=== PATIENT | female | born 1970 | race Caucasian/White ===

== ENCOUNTER 2021-05-09 05:15 | Emergency (ER) | payer MEDICARE ==
[~2021-05-09] VITALS: Ht 170.2 cm; Wt 105.7 kg
--- NOTE | 2021-05-09 05:40 | NUR ---
PT IS DEAF AND HAVE TO COMMUNICATE WITH TYPEING ON HER PHONE. PT STATES SHE IS HAVE EPIGASTRIC PAIN THAT RADIATES TO HER BACK. PT STATES SHE HAS BEEN VOMITING FOR ONE DAY AND IS VERY UNCOMFORTABLE. DENIES ANY MEDICAL HISTORY. PT TO RESTROOM FOR URINE AT THIS TIME
[2021-05-09] MEDS ORDERED: HYDROmorphone 1 MG/ML, 1ML INJ IV ONE ×3 (06:00→09:00)
[2021-05-09] MEDS ORDERED: SODIUM CHLORIDE FLUSH 10ML SYR IVF ONE (06:00)
[2021-05-09] MEDS ORDERED: ONDANSETRON 2MG/ML, 2ML IVPush ONE (06:00)
[2021-05-09] MEDS ORDERED: HYDROmorphone 1 MG/ML, 1ML INJ ONE ×3 (06:13→09:49)
[2021-05-09] MEDS ORDERED: ONDANSETRON 2MG/ML, 2ML ONE (06:14)
[2021-05-09 06:31] LABS: BASOPHILS % (AUTO) 1 % (0-1); EOSINOPHILS % (AUTO) 0 % (1-7); LYMPHOCYTES % (AUTO) 14 % (22-44); MEAN CORPUSCULAR HEMOGLOBIN 28.4 pg (27.0-34.8); MEAN CORPUSCULAR HGB CONC 33.5 g/dL (32.4-35.8); MEAN PLATELET VOLUME 7.2 fL (7.4-10.4); MONOCYTES % (AUTO) 5 % (2-9); NEUTROPHILS % (AUTO) 80 % (42-75); PLATELET COUNT 333 x10^3/uL (130-400); RED BLOOD COUNT 4.35 x10^6/uL (3.82-5.3); RED CELL DISTRIBUTION WIDTH 13.1 % (9.6-15.2)
[2021-05-09 06:36] LABS: MICROSCOPIC AUTO
[2021-05-09 06:39] LABS: ALANINE AMINOTRANSFERASE 21 U/L (12-78); ALBUMIN 3.7 g/dL (3.4-5.0); ANION GAP 4 mmol/L (5-15); CHLORIDE 108 mmol/L (98-107); CREATININE 0.77 mg/dL (0.55-1.02)
[2021-05-09 06:44] LABS: ALKALINE PHOSPHATASE 91 U/L (45-117); BILIRUBIN,TOTAL 0.6 mg/dL (0.2-1.0); TOTAL PROTEIN 7.9 g/dL (6.4-8.2)
--- NOTE | 2021-05-09 06:56 | NUR ---
REPORT GIVEN TO FRANKLIN CHAPARRO
--- NOTE | 2021-05-09 07:03 | NUR ---
SBAR RECEIVED FROM PT. SHE IS SITTING ON [facility] NADN. SOCKS PROVIDED FOR PT SHE REPORTS HER FEET WERE COLD. DENIES OTHER NEEDS AT THIS TIME. ARUN, CALL LIGHT W/IN REACH.
[2021-05-09] MEDS ORDERED: MAALOX/HYOSCYAMINE/LIDOCAINE 45 ML BTL PO ONE (07:30)
[2021-05-09] MEDS ORDERED: MAALOX/HYOSCYAMINE/LIDOCAINE 45 ML BTL ONE (07:30)
--- NOTE | 2021-05-09 07:31 | NUR ---
PT TO CT
--- NOTE | 2021-05-09 07:56 | NUR ---
PT BROUGHT BACK FROM CT D/T INFILTRATED IV. WARM COMPRESS PLACED ON SITE. PT IS A DIFFICULT STICK, HAVING ANOTHER RN ATTEMPT IV GUIDED US WHEN AVAILABLE. PT MEDICATED PER DEC. NAD. CALL LIGHT W/IN REACH.
--- NOTE | 2021-05-09 08:10 | NUR ---
PT IV REMOVED W/ INSTRUCTION FOR PT TO KEEP WARM COMPRESS ON SITE. INFORMED PT WE WILL HAVE AN RN COME IN WHEN AVAILABLE FOR US GUIDED IV PLACEMENT. PROGRAM MANAGEMENT ANALYST UPDATED ON DELAY OF CARE FOR PT.
--- NOTE | 2021-05-09 09:12 | NUR ---
PIV OBTAINED BY ROBERTO MANAGER CLINICAL MADE AWARE WE HAVE IV ACCESS. PT RESTING IN [facility] [place], ON HER CELL PHONE. VINITAN, CALL LIGHT W/IN REACH.
[2021-05-09] MEDS ORDERED: OMNIPAQUE 350 MG/ML, 150 ML BOTTLE ONE (09:30)
--- NOTE | 2021-05-09 09:30 | NUR ---
pt to CT
[2021-05-09] MEDS ORDERED: FAMOTIDINE 20 MG/2 ML ONE (09:53)
[2021-05-09] MEDS ORDERED: FAMOTIDINE 20 MG/2 ML IVPush ONE (10:00)
--- NOTE | 2021-05-09 10:08 | NUR ---
PT MEDICATED BY TASK RN, WAITING FOR CT RESULT. PT ASKED FOR WATER, TOLD HER TO WAIT FOR RESULTS OF CT. NADN, CALL LIGHT W/IN REACH.
[2021-05-09 10:22] VITALS: BP 131/70
--- NOTE | 2021-05-09 11:03 | NUR ---
Patient given discharge instructions and Rx, they have confirmed that they understand the instructions. Patient ambulatory with steady gait. NAD, all questions answered appropriately, denies additional needs at this time. No personal belongings left in room after discharge.
== END 2021-05-09 11:05 | disposition home or self-care (01) ==
LOC: ED 09:02
DX: K29.00 Acute gastritis without bleeding (principal); R10.13 Epigastric pain; R11.2 Nausea with vomiting, unspecified
CPT/HCPCS: 36415; 74177; 80053; 81001; 83690; 84703; 85025; 93005; 96374; 96375; 96376; 99285; J1170; J2405; Q9967